=== PATIENT | male | born 1955 | race Caucasian/White ===

== ENCOUNTER 2018-10-20 13:31 | Emergency (ER) | payer OTHER ==
[~2018-10-20] VITALS: Ht 167.6 cm; Wt 65.8 kg
[2018-10-20] MEDS ORDERED: EUTHYROX50 MCG (13:37)
[2018-10-20] MEDS ORDERED: ASPIR 8181 MG (13:38)
[2018-10-20] MEDS ORDERED: COZAAR25 MG (13:38)
[2018-10-20] MEDS ORDERED: ROSUVASTATIN CA10 MG (13:38)
== END 2018-10-20 20:00 | disposition home or self-care (01) ==
LOC: ER 13:31
DX: K29.60 Other gastritis without bleeding (principal)

== ENCOUNTER 2020-03-20 10:45 | Inpatient (IN) | payer OTHER ==
[~2020-03-20] VITALS: Ht 167.6 cm; Wt 64.4 kg
[~2020-03-20 10:45] MED LIST: ASPIR 8181 MG; COZAAR25 MG PO; EUTHYROX50 MCG PO; ROSUVASTATIN CA10 MG PO
[2020-03-20] MEDS ORDERED: NEXIUM40 M1 PO (16:16)
[2020-03-20] MEDS ORDERED: PREVACID30 MG PO (16:16)
[2020-03-20] MEDS ORDERED: SOMA250 MG PO (16:17)
[2020-03-25] MEDS ORDERED: CARISOPRODOL350 MG PO (09:57)
[2020-03-25] MEDS ORDERED: DICLOFENAC POTA50 MG PO (09:59)
[2020-03-27] MEDS ORDERED: DUI500 PO (10:48)
[2020-03-27] MEDS ORDERED: ELIQUIS2.5 MG PO (10:48)
[2020-03-27] MEDS ORDERED: PERCOCET 5-3251 EACH PO (10:48)
== END 2020-03-27 19:28 | DRG 470 ==
LOC: O/R 03-25 05:55 → SURH 03-25 05:55 → O/R 03-25 11:16 → SURH 03-25 12:00
PROVIDERS: ADMIT Orthopaedic Surgery; ATTEND Orthopaedic Surgery
PROC: 0SRB0JZ Replacement of Left Hip Joint with Synthetic Substitute, Open Approach (ICD-10-PCS; principal; 2020-03-25 12:00)
DX: M16.12 Unilateral primary osteoarthritis, left hip (principal); D62 Acute posthemorrhagic anemia; E03.9 Hypothyroidism, unspecified; I10 Essential (primary) hypertension; K21.9 Gastro-esophageal reflux disease without esophagitis; Z20.822 Contact with and (suspected) exposure to COVID-19